=== PATIENT | male | born 1970 | race Two or more races ===

== ENCOUNTER 2025-06-26 06:41 | Day surgery (SDC) | payer OTHER ==
[2025-06-25 13:58] LABS: Hematocrit 42.8 % (41.0-53.0); Hemoglobin 14.4 g/dL (13.5-17.5); Mean Corpuscular Hemoglobin 31.4 pg (28.0-32.0); Mean Corpuscular Volume 93.0 fL (80.0-100.0); Nucleated Red Blood Cells % 0.0 %
[2025-06-25 14:04] LABS: Urine Protein, UAD Negative (Negative)
[2025-06-25 14:13] LABS: INR 0.96 (0.9-1.15); Partial Thromboplastin Time 27.3 SEC (24.5-34.5); Prothrombin Time 10.2 sec (9.3-11.8)
[2025-06-25 14:30] LABS: Alanine Aminotransferase 17 U/L (7-40); Albumin 4.4 g/dL (3.2-4.8); Anion Gap 7 (5-15); BUN/Creatinine Ratio 10.3 (10.0-20.0); Bilirubin, Total 0.6 mg/dL (0.2-1.0); Blood Urea Nitrogen 12 mg/dL (9-23); Calcium 9.0 mg/dL (8.7-10.4); Carbon Dioxide 29 mmol/L (20-31); Chloride 107 mmol/L (98-107); Glucose 84 mg/dL (74-106); Potassium 4.2 mmol/L (3.5-5.1); Sodium 143 mmol/L (136-145); Total Protein 6.7 g/dL (5.7-8.2)
[2025-06-25 14:31] LABS: Alkaline Phosphatase 147 U/L (46-116)
[~2025-06-26] VITALS: Ht 185.4 cm; Wt 102.1 kg
[2025-06-26] MEDS ORDERED: SUCCINYLCHOLINE CHLORIDE 20 MG/ML 10ML VIAL IV ONE (09:17)
[2025-06-26] MEDS ORDERED: BUPIVACAINE 0.5% MPF INJ 30ML SDV IJ ONE (09:18)
[2025-06-26] MEDS ORDERED: fentaNYL CITRATE 100 MCG/2 ML VL ONE (09:18)
[2025-06-26] MEDS ORDERED: BACITRACIN TOP OINT 1 UD PKG TOP ONE (09:18)
[2025-06-26] MEDS ORDERED: PROPOFOL 10 MG/ML 20 ML IV ONE (09:19)
[2025-06-26] MEDS ORDERED: HYDROmorphone HCL 2 MG/ML VL/or syr ONE (09:19)
[2025-06-26] MEDS: ceFAZolin 2 GM/D5W50ml 50 ML IV ONE (09:30)
[2025-06-26] MEDS ORDERED: ONDANSETRON HCL 4 MG/2 ML VIAL ONE (09:36)
[2025-06-26] MEDS: GELATIN 1 SPONGE SIZE 100 TOP ONE (09:50)
[2025-06-26] MEDS: LIDOCAINE 2% JELLY 11ml (GLYDO) ONE (09:50)
[2025-06-26] MEDS ORDERED: ROCURONIUM 10MG/ML 10ML VIAL IV ONE (09:54)
[2025-06-26] MEDS ORDERED: SUGAMMADEX 200mg/2ml Vial (100MG/ML) IV ONE (09:55)
[2025-06-26 10:04] VITALS: PULSE 89; RESP 16; TEMP 98.3; O2SAT 98
[2025-06-26] MEDS ORDERED: ACE3T PO (10:14)
[2025-06-26] MEDS ORDERED: ACETAMINOPHEN IV 1000 MG/100ML (10MG/ML) IV PRN (10:15)
[2025-06-26] MEDS ORDERED: ONDANSETRON HCL 4 MG/2 ML VIAL IV ONE (10:15)
[2025-06-26] MEDS ORDERED: MEPERIDINE HCL (25 MG/ML) 1ML VIAL IV PRN (10:15)
[2025-06-26] MEDS ORDERED: HYDROmorphone HCL 2 MG/ML VL/or syr IV PRN (10:15)
--- NOTE | 2025-06-26 10:21 | DVHOP ---
DATE OF SURGERY: 06/26/2025 PREOPERATIVE DIAGNOSIS: Anal fissure. POSTOPERATIVE DIAGNOSIS: Anal fissure. SURGEON: Kirill Marcus MD REGULATORY COMPLIANCE DIRECTOR: Eris Jesus NP ANESTHESIA: General endotracheal. ANESTHESIOLOGIST: Dr. Forbes PROCEDURES: * Endoscopy. * Anal dilatation. * Curettage of anal fissure. * Ligature of internal hemorrhoid. DESCRIPTION OF PROCEDURE: Under general anesthesia with the patient in jackknife position prone on the operating room table, his skin prepped and draped. The anal examination began with a digital exam revealing no intraluminal masses. The digital examination was carried to a 3 fingerbreadth width in order to release the muscle spasm. Anoscopic examination reveals internal hemorrhoids. These were ligated with a rubber band ligator. There was a large anal fissure at the 12 o'clock position, which exposes the sphincter muscle. Due to the involvement with the sphincter muscle, the fissure was curettaged in order to attempt to avoid fecal incontinence in a postoperative recovery period. The curettage involved the mucosa as well as the superficial layer of the muscle. Subsequently, 0.25% Marcaine with epinephrine was injected into the perianal skin and the anus was loosely packed with Gelfoam saturated with 2% Xylocaine gel. The patient remained stable throughout the procedure and left the operating room following an accurate needle and sponge count. His , Lizzy was thoroughly informed at [id number]. Kirill Marcus MD PF/EKT TID: [id number] RECEIPT: [id number]
[2025-06-26 10:45] VITALS: BP 111/54; PULSE 83; RESP 15; O2SAT 97
== END 2025-06-26 10:10 | disposition home or self-care (01) ==
LOC: SUR 06:41
PROVIDERS: ATTEND Surgery
DX: K64.8 Other hemorrhoids (principal); K60.2 Anal fissure, unspecified; F41.9 Anxiety disorder, unspecified; F32.A Depression, unspecified; Z98.890 Other specified postprocedural states
CPT/HCPCS: 36415; 46221; 80053; 81001; 85025; 85610; 85730; J0330; J0690; J1171; J2405; J2704; J3010; J3490